=== PATIENT | female | born 1995 | race Caucasian/White ===

== ENCOUNTER 2021-04-15 22:20 | Emergency (ER) | payer OTHER ==
[~2021-04-15] VITALS: Ht 165.1 cm; Wt 52.2 kg
[~2021-04-15 22:20] MED LIST: ACETAMINOPHEN-1 EAC1 PO; AMITRIPTYLINE H25 M2 PO; AZITHROMYCIN 2250 MG PO; BENADRYL25 MG PO; CIPRO500 MG PO; DOXYCYCLINE 10100 MG PO; FLAGYL500 MG PO; KEFLEX500 M1 PO; PEPCID20 MG PO; PHENERGAN 25 MG25 M1 PO; POTASSIUM20 PO; PRILOSEC 20 MG20 MG PO; PROMETHAZI6.25 MG/5 PO; PROMETHAZINE12.5 M4 RE; PROMS25 WY RECTAL; SUPRAX400 M1 PO; TESSALON PERLE100 MG PO; TYLENOL WITH CO1 TA1 PO; XANAX 0.25 MG0.25 MG PO; ZOFRAN ODT4 MG PO; ZPAK PO
[2021-04-15 23:04] LABS: BASOPHILS 1.1 % (0.0-2.0); HEMATOCRIT 38.8 % (37.0-47.0); HEMOGLOBIN 12.5 gm/dL (12.0-15.0); LYMPHOCYTES 35.3 % (24.0-44.0); MCHC 32.1 g/dL (28.0-37.0); MONOCYTES 8.1 % (1.0-8.0); PLATELET COUNT 288 thou/uL (150-400); POLYS 50.5 % (36.0-66.0); RBC 4.62 mil/uL (4.20-5.00); RDW 18.1 % (10.5-14.5); WBC 9.9 thou/uL (4.0-11.0)
[2021-04-15 23:11] LABS: ANION GAP 12 mmol/L (7-16); BUN 8 mg/dL (7-18); CHLORIDE 101 mmol/L (98-107); CO2 25 mmol/L (21-32); CREATININE 0.6 mg/dL (0.6-1.0); GLUCOSE 91 mg/dL (74-106); POTASSIUM 3.8 mmol/L (3.5-5.1); SODIUM 138 mmol/L (136-145)
[2021-04-15 23:18] LABS: ALBUMIN 3.9 g/dL (3.4-5.0); AMYLASE 65 U/L (25-115); DIRECT BILIRUBIN < 0.1 mg/dL (<0.1-0.2); LIPASE 97 U/L (73-393); SGOT 13 U/L (15-37); SGPT 23 U/L (30-65); TOTAL BILIRUBIN 0.3 mg/dL (0.2-1.0); TOTAL PROTEIN 7.6 g/dL (6.4-8.2)
[2021-04-16 00:15] LABS: URINE BILIRUBIN NEGATIVE (Negative); URINE BLOOD TRACE (Negative); URINE CLARITY CLEAR; URINE COLOR YELLOW; URINE GLUCOSE-RANDOM* NEGATIVE (Negative); URINE KETONES NEGATIVE (Negative); URINE NITRITE-REFLEX NEGATIVE (Negative); URINE PROTEIN (DIPSTICK) NEGATIVE (Negative); URINE SPECIFIC GRAVITY 1.015 (1.005-1.035); URINE UROBILINOGEN 0.2 E.U./dl (0.2-1.0)
[2021-04-16 00:23] LABS: URINE LEUKOCYTES-REFLEX 3+ (Negative)
[2021-04-16 00:24] LABS: CASTS None Seen /LPF (None Seen); CRYSTALS None Seen /LPF (None Seen); MUCUS 0-3 Light strn/LPF (None Seen); SQUAMOUS 0-3 Few /LPF (0-3); URINE RBC 3-10 Few /HPF (NONE SEEN)
[2021-04-16] MEDS ORDERED: IBUPROFEN 800800 MG PO (01:10)
[2021-04-16] MEDS ORDERED: MACROBID 100 M100 M1 PO (01:10)
[2021-04-16] MEDS ORDERED: PYRIDIUM200 MG PO (01:10)
[2021-04-16 01:43] VITALS: BP 108/61
[2021-04-18] MEDS ORDERED: CEPHALEXIN500 MG PO (09:17)
== END 2021-04-16 01:48 | disposition home or self-care (01) ==
LOC: ER 22:20
PROVIDERS: Emergency Medicine
DX: N83.201 Unspecified ovarian cyst, right side (principal); N39.0 Urinary tract infection, site not specified; R10.31 Right lower quadrant pain; F17.210 Nicotine dependence, cigarettes, uncomplicated; Z87.442 Personal history of urinary calculi